=== PATIENT | female | born 1935 | race African-American/Black ===

== ENCOUNTER 2018-07-08 07:26 | Inpatient (IN) | payer OTHER ==
[~2018-07-08] VITALS: Ht 165.1 cm; Wt 83.0 kg
[2018-07-08 08:07] LABS: BASOPHIL % 0.5 % (0-2); PLATELET COUNT 348 x10^3mcL (130-400)
[2018-07-08 08:15] LABS: RED CELL DISTRIBUTION WIDTH 14.7 % (11.5-14.5)
[2018-07-08 08:21] LABS: CALCIUM 9.6 mg/dL (8.5-10.1); CARBON DIOXIDE 24.7 mmol/L (21-32); CHLORIDE SERUM 93 mmol/L (98-107); CREATININE SERUM 1.5 mg/dL (0.6-1.0); GLUCOSE SERUM 185 mg/dL (74-106); POTASSIUM SERUM 3.3 mmol/L (3.5-5.1); SODIUM SERUM 128 mmol/L (136-145)
[2018-07-08] MEDS ORDERED: ATORVASTATIN CA40 M1 PO (09:39)
[2018-07-08] MEDS ORDERED: ATIVAN0.5 M1 PO (09:39)
[2018-07-08] MEDS ORDERED: CARVEDILOL6.25 M1 PO (09:40)
[2018-07-08] MEDS ORDERED: ARICEPT5 MG PO (09:41)
[2018-07-08] MEDS ORDERED: DUL10S RC (09:41)
[2018-07-08] MEDS ORDERED: FLEET ENEMA135 ML PR (09:43)
[2018-07-08] MEDS ORDERED: MECLIZINE HYDRO25 M1 PO (09:43)
[2018-07-08] MEDS ORDERED: LEADER MELATONIN5 MG PO (09:44)
[2018-07-08] MEDS ORDERED: MILK OF MA400 MG/51 PO (09:45)
[2018-07-08] MEDS ORDERED: SEROQUEL50 M1 PO (09:46)
[2018-07-08] MEDS ORDERED: HCTZ/TRIAMTEREN1 CA1 PO (09:47)
[2018-07-08 11:22] LABS: T3 TOTAL 1.2 ng/mL
[2018-07-08 11:30] LABS: MAGNESIUM 1.6 mg/dL (1.8-2.4)
[2018-07-08 11:37] LABS: FREE T4 1.72 ng/dL (0.76-1.46); FREE THYROXINE INDEX 3.5 ug/dL (1.4-4.5)
[2018-07-08 11:38] LABS: CHOLESTEROL/HDL RATIO 2.5
[2018-07-08 11:57] VITALS: BP 106/76
[2018-07-08 15:26] LABS: UA SPECIFIC GRAVITY >=1.030 (1.005-1.035); microscopic required? YES; urine erythrocyte NEGATIVE (NEGATIVE)
[2018-07-08 15:30] VITALS: BP 117/72
[2018-07-08 16:10] VITALS: BP 132/96
[2018-07-08 17:18] VITALS: BP 132/96
[2018-07-08 19:30] VITALS: BP 117/89
[2018-07-08 23:18] VITALS: BP 89/65
[2018-07-09 03:10] LABS: BASOPHIL % 0.2 % (0-2); PLATELET COUNT 348 x10^3mcL (130-400); RED CELL DISTRIBUTION WIDTH 14.3 % (11.5-14.5)
[2018-07-09 03:13] VITALS: BP 125/85
[2018-07-09 03:46] LABS: CALCIUM 9.1 mg/dL (8.5-10.1); CARBON DIOXIDE 22.1 mmol/L (21-32); CHLORIDE SERUM 104 mmol/L (98-107); CREATININE SERUM 1.1 mg/dL (0.6-1.0); GLUCOSE SERUM 105 mg/dL (74-106); MAGNESIUM 1.6 mg/dL (1.8-2.4); PHOSPHOROUS 2.9 mg/dL (2.5-4.9); POTASSIUM SERUM 3.9 mmol/L (3.5-5.1); SODIUM SERUM 136 mmol/L (136-145)
[2018-07-09 07:51] VITALS: BP 106/74
[2018-07-09 11:49] VITALS: BP 125/90
[2018-07-09 15:32] VITALS: BP 121/91
[2018-07-09 19:29] VITALS: BP 109/76
[2018-07-10] VITALS (7 sets, daily range): BP systolic 79–131; BP diastolic 51–82; Ht 165.1 cm; Wt 83.0 kg
[2018-07-10 06:11] LABS: BASOPHIL % 0.2 % (0-2); PLATELET COUNT 331 x10^3mcL (130-400); RED CELL DISTRIBUTION WIDTH 15.2 % (11.5-14.5)
[2018-07-10 08:08] LABS: CALCIUM 9.1 mg/dL (8.5-10.1); CHLORIDE SERUM 102 mmol/L (98-107); CREATININE SERUM 1.1 mg/dL (0.6-1.0); GLUCOSE SERUM 102 mg/dL (74-106); SODIUM SERUM 135 mmol/L (136-145)
== END 2018-07-10 23:25 | disposition expired ==
LOC: ED 07:26 → DU 09:52 → IC 16:10
PROVIDERS: Emergency Medicine; Internal Medicine
DX: I21.3 ST elevation (STEMI) myocardial infarction of unspecified site (principal); J96.01 Acute respiratory failure with hypoxia; I26.99 Other pulmonary embolism without acute cor pulmonale; N17.0 Acute kidney failure with tubular necrosis; I42.9 Cardiomyopathy, unspecified; E87.1 Hypo-osmolality and hyponatremia; I82.431 Acute embolism and thrombosis of right popliteal vein; I82.412 Acute embolism and thrombosis of left femoral vein; E87.6 Hypokalemia; R73.03 Prediabetes; E83.42 Hypomagnesemia; E05.90 Thyrotoxicosis, unspecified without thyrotoxic crisis or storm; G30.9 Alzheimer's disease, unspecified; F02.80 Dementia in other diseases classified elsewhere, unspecified severity, without behavioral disturbance, psychotic disturbance, mood disturbance, and anxiety; E78.5 Hyperlipidemia, unspecified; I25.2 Old myocardial infarction; Z68.29 Body mass index [BMI] 29.0-29.9, adult; Z87.891 Personal history of nicotine dependence; Z86.718 Personal history of other venous thrombosis and embolism; Z86.73 Personal history of transient ischemic attack (TIA), and cerebral infarction without residual deficits
CPT/HCPCS: 82962; 83880; 84439; 85378; J0456; J0696; J1265; J1644; J2060; J3480; J3490; J7030; J7613; J7620; J7644; Q0092; Q9967